=== PATIENT | male | born 1990 | race Caucasian/White ===

== ENCOUNTER 2017-01-29 13:28 | Emergency (ER) | payer SELFPAY ==
[2017-01-29] MEDS ORDERED: KEPPRA1000 MG PO ×2 (13:39)
[2017-01-29] MEDS ORDERED: AUGMENTIN 875-1 EAC1 PO (15:19)
[2017-01-29] MEDS ORDERED: BACTRIM DS TAB1 EACH PO (15:19)
[2017-01-29 15:34] VITALS: BP 132/88
== END 2017-01-29 15:33 | disposition home or self-care (01) ==
LOC: ED 13:28
DX: S91.331A Puncture wound without foreign body, right foot, initial encounter (principal); W22.8XXA Striking against or struck by other objects, initial encounter; Y92.838 Other recreation area as the place of occurrence of the external cause